=== PATIENT | male | born 1995 | race Caucasian/White ===

== ENCOUNTER 2017-09-19 20:11 | Inpatient (IN) | payer OTHER ==
[~2017-09-19] VITALS: Ht 167.6 cm; Wt 108.9 kg
--- NOTE | 2017-09-19 00:30 | NUR ---
WEIGHT CALCULATOR NOTES RECEIVED FROM ED . PT A&O 1-2, PT KEPT NPO. L HAND #20G WITH 0.9 INFUSING AT @ 75. GRANDMOTHER AT THE BED SIDE. PT ORIENTED TO ROOM.ALL ADMISSION ORDERS CARRIED OUT. SAFETY PRE TAKEN. WILL CONT TO MONITOR.
--- NOTE | 2017-09-19 20:15 | NUR ---
[id number] C/C SEIZURE. PER FAMILY AND EMS, THIS WAS A PSEUDO SEIZURE. NAD NOTED. VSS. PT AAO X3, FOLLOWING COMMANDS. RR EVEN AND UNLABORED. MD AT BEDSIDE FOR EVAL.
[2017-09-19] MEDS ORDERED: LORAZEPAM INJ 2 MG/ML VIAL ONE (20:57)
[2017-09-19] MEDS ORDERED: LORAZEPAM INJ 2 MG/ML VIAL IVP ONE (21:00)
[2017-09-19 21:18] LABS: BASOPHILS % (AUTO) 0.6 % (0.0-2.0); EOSINOPHILS % (AUTO) 1.4 % (0.0-6.0); HEMATOCRIT 38 % (39-51); HEMOGLOBIN 12.8 g/dL (13.5-17.5); LYMPHOCYTES # (AUTO) 1.6 /CMM (0.8-4.8); LYMPHOCYTES % (AUTO) 29.3 % (20.0-44.0); MEAN CORPUSCULAR HEMOGLOBIN 28 PG (26.0-33.0); MEAN CORPUSCULAR HGB CONC 33 g/dl (31.0-36.0); MEAN CORPUSCULAR VOLUME 83 fL (80-96); MONOCYTES # (AUTO) 0.3 /CMM (0.1-1.30); MONOCYTES % (AUTO) 5.5 % (2.0-12.0); NEUTROPHILS # (AUTO) 3.4 /CMM (1.8-8.9); NEUTROPHILS % (AUTO) 63.2 % (43.0-81.0); PLATELET COUNT (AUTO) 211 /CMM (150-450); RDW COEFFICIENT OF VARIATION 13.4 (11.5-15.0); RED BLOOD CELL COUNT(AUTO) 4.64 MIL/uL (4.5-6.0); WHITE BLOOD COUNT (AUTO) 5.4 K/uL (4.3-11.0)
[2017-09-19 21:26] LABS: CALCIUM, SERUM 8.6 mg/dL (8.5-10.1); CREATININE 0.9 mg/dL (0.6-1.3)
[2017-09-19] MEDS ORDERED: IV NS 0.9% 1,000 ML BAG IV ONE (22:00)
[2017-09-19 23:45] LABS: INR 1.04 (0.87-1.13)
[2017-09-19 23:47] LABS: ALBUMIN 4.3 g/dL (3.4-5.0); BILIRUBIN,TOTAL 0.3 mg/dL (0.2-1.0); TOTAL PROTEIN, SERUM 7.6 g/dL (6.4-8.2)
[2017-09-20] VITALS (7 sets, daily range): BP systolic 90–140; BP diastolic 40–77
--- NOTE | 2017-09-20 00:25 | NUR ---
REPORT GIVEN TO JORGE ALBERTO RETANA FOR PAMELLA
[2017-09-20] MEDS ORDERED: MAG HYDROX/AL HYDROX/SIMETH 30 ML UDC PO PRN (00:30)
[2017-09-20] MEDS ORDERED: ONDANSETRON HCL/PF 4 MG/2 ML VIAL IVP PRN (00:30)
[2017-09-20] MEDS ORDERED: ACETAMINOPHEN 325 MG TABLET PO PRN (00:30)
[2017-09-20] MEDS ORDERED: LORAZEPAM INJ 2 MG/ML VIAL IV PRN (00:30)
[2017-09-20] MEDS ORDERED: HYDROCODONE/APAP 5/325MG 1 EACH TABLET PO PRN (00:30)
[2017-09-20] MEDS ORDERED: Z GUARD REMEDY 2 OZ OINT TP PRN (00:30)
[2017-09-20] MEDS ORDERED: MAGNESIUM HYDROXIDE 30 ML UDC PO PRN (00:30)
--- NOTE | 2017-09-20 01:00 | NUR ---
APPLICATIONS COORDINATOR NOTES RECEIVED FROM ED . PT A&O 1-2, PT KEPT NPO. L HAND #20G WITH 0.9 INFUSING AT @ 75. GRANDMOTHER AT THE BED SIDE. PT ORIENTED TO ROOM.ALL ADMISSION ORDERS CARRIED OUT. SAFETY PRE TAKEN. WILL CONT TO MONITOR.
[2017-09-20] MEDS: IV NS 0.9% 1,000 ML IV PRN ×2 (03:39→23:10)
--- NOTE | 2017-09-20 07:15 | NUR ---
SUPERVISOR SOLDER MAKING OPENING NOTE RECEIVED REPORT FROM PM NURSE . PATIENT IS SLEEPING ,NO SOB NO DISTRESS NOTED AT THIS TIME. PATIENT IS NPO. L HAND #20G WITH NS INFUSING AT @ 75CC/HR. .ON TELE MONITOR ON SR 65.SAFETY PRECAUTIONS MAINTAINED.BED IS IN LOW AND LOCKED POSITION.CALL LIGHT IN REACH.SRX3 PADDED.SEIZURE PRECAUTIONS MAINTAINED.WILL CONTINUE TO MONITOR.
--- NOTE | 2017-09-20 07:32 | NUR ---
RN CLOSING NOTES NO CHANGE IN PTS CONDITION OVER NIGHT. WILL ENDORSE TO AM RN.
[2017-09-20] MEDS ORDERED: LAMO100T2 PO (08:15)
[2017-09-20] MEDS ORDERED: OXCA600T PO (08:15)
[2017-09-20] MEDS ORDERED: GABA-534 PO (08:15)
[2017-09-20] MEDS ORDERED: TRAZ-182 PO (08:15)
[2017-09-20] MEDS ORDERED: DOCU-141 PO (08:15)
[2017-09-20] MEDS ORDERED: TOPI100T38 PO (08:15)
[2017-09-20] MEDS ORDERED: ZOLP5TAB8 PO (08:15)
[2017-09-20] MEDS ORDERED: OLAN7.5T3 PO (08:15)
[2017-09-20] MEDS ORDERED: LACT10SO4 PO (08:15)
[2017-09-20] MEDS: LamoTRIgine 100 MG TABLET PO SCH ×2 (12:16→21:16)
[2017-09-20] MEDS ORDERED: ZOLPIDEM TARTRATE 5 MG TABLET PO PRN (12:30)
[2017-09-20] MEDS: OLANZAPINE 2.5 MG TABLET PO SCH ×2 (12:36→21:16)
[2017-09-20] MEDS: TOPIRAMATE 100 MG TABLET PO SCH (12:36)
[2017-09-20] MEDS ORDERED: OXCARBAZEPINE 150 MG TABLET PO SCH (14:00)
--- NOTE | 2017-09-20 15:45 | NUR ---
MANAGEMENT MANAGER NOTES SEEN BY SECONDS INSPECTOR TIFFANY MADE AWARE ABOUT FAMILY HAVE QUESTIONS ABOUT THE PATIENT.ALSO NOTIFIED ABOUT PATIENT NPO STATUS.GOT NEW ORDER FOR REGULAR DIET.FABRICS AND MATERIAL CUTTER IS HERE TO DO PROCEDURE .FAMILY IS AT BEDSIDE.PT EVAL DONE PATIENT WAS ABLE TO WALK IN THE HALLWAY WITH 4 POINT WALKER.
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
[2017-09-20] MEDS: GABAPENTIN 300 MG CAPSULE PO SCH (16:58)
[2017-09-20] MEDS: DOCUSATE SODIUM 100 MG CAPSULE PO SCH (16:58)
[2017-09-20] MEDS: LACTULOSE 10 G/15 ML UDC (PYXIS) PO PRN (17:00)
[2017-09-20] MEDS ORDERED: TRAZODONE 50 MG TABLET PO PRN (17:00)
--- NOTE | 2017-09-20 19:22 | NUR ---
COAT FITTER SHIFT END NOTE PATIENT IS AWAKE ,NO SOB NO DISTRESS NOTED AT THIS TIME.HAD DINNER EAT 75%. L HAND #20G WITH NS INFUSING AT @ 75CC/HR. .ON TELE MONITOR ON SR 70.IV ON LAC NO GOOD BLOOD RETURN AND HAS PAIN WHILE FLUSHING. REMOVED IV LINE.NO BLEEDING NOTED. SAFETY PRECAUTIONS MAINTAINED.BED IS IN LOW AND LOCKED POSITION.CALL LIGHT IN REACH.SRX3 PADDED.SEIZURE PRECAUTIONS MAINTAINED.ENDORSED TO PM NURSE FOR PAMELLA.NO SEIZURE NOTED DURING CARE.
--- NOTE | 2017-09-20 20:28 | NUR ---
POSTDOCTORAL RESEARCH FELLOW OPENING NOTE RECEIVED REPORT FROM AM NURSE . PATIENT IS AWAKE ,NO SOB NO DISTRESS NOTED AT THIS TIME. PATIENT IS REGULAR DIET, REQUESTED FOR SNACKS, PROVIDED. L HAND #20G WITH NS INFUSING AT @ 75CC/HR. .ON TELE MONITOR ON SR 65.SAFETY PRECAUTIONS MAINTAINED.BED IS IN LOW AND LOCKED POSITION.CALL LIGHT IN REACH.SRX3 PADDED.SEIZURE PRECAUTIONS MAINTAINED.WILL CONTINUE TO MONITOR.
[2017-09-20] MEDS: OXCARBAZEPINE 300 MG PO SCH (21:16)
--- NOTE | 2017-09-20 22:48 | NUR ---
TELE/RN NOTES: RECEIVED PT. FROM NURSE GRACIA FOR PAMELLA.
[2017-09-21] VITALS: BP 116/67
--- NOTE | 2017-09-21 | NUR ---
TELE/RN NOTES: PT. IS ALERT X 2-3. ON TELE MONITOR W/ SR 74. CONTINENT OF BLADDER. USES URINAL. ON IVF W/ NO S/S OF INFECTION/INFILTRATION NOTED. DENIES ANY C/O PAIN OR SOB AT PRESENT. WILL CONTINUE TO MONITOR.
[2017-09-21 04:00] VITALS: BP 98/59
[2017-09-21 07:23] LABS: BASOPHILS % (AUTO) 0.6 % (0.0-2.0); EOSINOPHILS % (AUTO) 2.1 % (0.0-6.0); HEMATOCRIT 36 % (39-51); HEMOGLOBIN 12.3 g/dL (13.5-17.5); LYMPHOCYTES # (AUTO) 1.9 /CMM (0.8-4.8); LYMPHOCYTES % (AUTO) 38.5 % (20.0-44.0); MEAN CORPUSCULAR HEMOGLOBIN 29 PG (26.0-33.0); MEAN CORPUSCULAR HGB CONC 34 g/dl (31.0-36.0); MEAN CORPUSCULAR VOLUME 85 fL (80-96); MONOCYTES # (AUTO) 0.3 /CMM (0.1-1.30); MONOCYTES % (AUTO) 6.7 % (2.0-12.0); NEUTROPHILS # (AUTO) 2.5 /CMM (1.8-8.9); NEUTROPHILS % (AUTO) 52.1 % (43.0-81.0); PLATELET COUNT (AUTO) 198 /CMM (150-450); RDW COEFFICIENT OF VARIATION 14.1 (11.5-15.0); RED BLOOD CELL COUNT(AUTO) 4.27 MIL/uL (4.5-6.0); WHITE BLOOD COUNT (AUTO) 4.9 K/uL (4.3-11.0)
[2017-09-21 07:47] LABS: CALCIUM, SERUM 8.2 mg/dL (8.5-10.1); CREATININE 1.1 mg/dL (0.6-1.3); MAGNESIUM 1.9 mg/dL (1.8-2.4); PHOSPHORUS 5.1 mg/dL (2.5-4.9)
--- NOTE | 2017-09-21 07:56 | NUR ---
TELE/RN NOTES: REPORT GIVEN TO AM NURSE FOR PAMELLA.
[2017-09-21 08:00] VITALS: BP 103/56
[2017-09-21] MEDS: OLANZAPINE 2.5 MG TABLET PO SCH ×2 (08:02→17:29)
[2017-09-21] MEDS: LamoTRIgine 100 MG TABLET PO SCH ×2 (08:02→17:29)
[2017-09-21] MEDS: GABAPENTIN 300 MG CAPSULE PO SCH ×2 (08:02→17:29)
[2017-09-21 08:11] LABS: THYROID STIMULATING HORMONE 3.424 uIU/mL (0.358-3.74)
--- NOTE | 2017-09-21 08:28 | NUR ---
Received patient from night stocker RN, Kimberley. Patient is alert and oriented. On room air, no sign of respiratory distress. IV left hand, infusing IV fluid with no sign of infiltration.
[2017-09-21] MEDS: OXCARBAZEPINE 300 MG PO SCH (08:44)
[2017-09-21] MEDS: DOCUSATE SODIUM 100 MG CAPSULE PO SCH ×2 (08:44→17:29)
[2017-09-21] MEDS: TOPIRAMATE 100 MG TABLET PO SCH (09:16)
[2017-09-21 12:00] VITALS: BP 120/54
[2017-09-21] MEDS: LACTULOSE 10 G/15 ML UDC (PYXIS) PO PRN (15:51)
[2017-09-21 16:00] VITALS: BP 116/59
--- NOTE | 2017-09-21 19:21 | NUR ---
End of shift Note Gave report to smoking tobacco packer hand RNBaylee. Patient in stable condition. Will be discharged home
--- NOTE | 2017-09-21 19:50 | NUR ---
RN DC NOTES DC TEACHING TO PT AND FAMILY DONE BY AM RN ALL BELONGING GIVEN BY AM RN, ASSISTED WITH TEL MONITOR, FAMILY STILL WITH AM RN .
== END 2017-09-21 19:40 | disposition home or self-care (01) | DRG 53 ==
LOC: ER 20:14 → EDBD 20:14 → TELE1 09-20 00:08
PROVIDERS: ADMIT Nurse Practitioner Acute Care; ATTEND Nurse Practitioner Acute Care
DX: G40.909 Epilepsy, unspecified, not intractable, without status epilepticus (principal); G81.91 Hemiplegia, unspecified affecting right dominant side; Z87.820 Personal history of traumatic brain injury; Z88.0 Allergy status to penicillin; H54.61 Unqualified visual loss, right eye, normal vision left eye; F43.10 Post-traumatic stress disorder, unspecified; Z98.890 Other specified postprocedural states
CPT/HCPCS: 36415; 70450-TC; 71045-TC; 80048-TC; 80061-TC; 80076-TC; 82140-TC; 83735-TC; 84100-TC; 84443-TC; 85025-TC; 85730-TC; 87081-TC; 95819-TC; A4606; J2060; J7030; Z7610